=== PATIENT | male | born 2000 | race Caucasian/White ===

== ENCOUNTER 2024-06-01 21:20 | Emergency (ER) | payer SELFPAY ==
[~2024-06-01] VITALS: Ht 175.3 cm; Wt 100.0 kg
[2024-06-01 21:23] VITALS: BP 149/99; PULSE 102; RESP 15; TEMP 96.8; O2SAT 99
== END 2024-06-01 21:43 ==
LOC: ER 21:21
DX: Z02.89 Encounter for other administrative examinations (principal); Z88.0 Allergy status to penicillin
CPT/HCPCS: 99283